=== PATIENT | female | born 1950 | race Caucasian/White ===

== ENCOUNTER → 2020-10-19 | Outpatient (CLI) | payer MEDICARE | LOC: MAMO 12:32 | DX: Z53.9 Procedure and treatment not carried out, unspecified reason (principal) ==

== ENCOUNTER → 2020-11-28 | Outpatient (CLI) | payer MEDICARE | LOC: MAMO 08:07 | DX: Z12.31 Encounter for screening mammogram for malignant neoplasm of breast (principal) | CPT/HCPCS: 77063; 77067 ==